=== PATIENT | male | born 1975 | race Hispanic/Latino ===

== ENCOUNTER 2018-03-20 14:45 | Emergency (ER) | payer OTHER, SELFPAY ==
[2018-03-20] MEDS ORDERED: FENTANYL CITR 100 MCG/2 ML ONE (14:59)
[2018-03-20] MEDS ORDERED: ONDANSETRON 4 MG/2 ML VIAL ONE (15:00)
--- NOTE | 2018-03-20 15:49 | RAD REPORT ---
EXAM DESCRIPTION: RAD - Elbow Left 3 View - 03/20/2018 3:41 pm CLINICAL HISTORY: Left elbow pain status post fall FINDINGS: The ulna and radius are dislocated posteriorly. A small avulsed bone fragment is suspected
[2018-03-20] MEDS ORDERED: ETOMIDATE 20 MG/10 ML VIAL IV ONE (16:04)
[2018-03-20] MEDS ORDERED: MIDAZOLAM HCL 2 MG/2 ML INJ ONE (16:04)
--- NOTE | 2018-03-20 16:57 | ER ---
Nurse's Notes [facility] Name: Alexy Fernandez Age: 42 yrs Sex: Male : 1975 Arrival Date: 03/20/2018 Time: 14:46 Bed 2 Private MD: Diagnosis: Dislocation and sprain of joints and ligaments of elbow Presentation: 03/20 14:46 Presenting complaint: EMS states: Patient fell from standing onto extended left arm. aj Reports pain in left elbow and inability to move left arm since fall. Transition of care: patient was not received from another setting of care. Onset of symptoms was March 20, 2018. Risk Assessment: Do you want to hurt yourself or someone else? Patient reports no desire to harm self or others. Initial Sepsis Screen: Does the patient meet any 2 criteria? No. Patient's initial sepsis screen is negative. Does the patient have a suspected source of infection? No. Patient's initial sepsis screen is negative. Care prior to arrival: None. 14:46 Method Of Arrival: EMS: [facility] 14:46 Acuity: CATIE 3 aj Triage Assessment: 14:48 General: Appears in no apparent distress. uncomfortable, Behavior is calm, cooperative, aj appropriate for age. Pain: Complains of pain in left elbow. Neuro: Level of Consciousness is awake, alert, obeys commands, Oriented to person, place, time, situation, Appropriate for age. Respiratory: Airway is patent Respiratory effort is even, unlabored, Respiratory pattern is regular, symmetrical. Derm: Skin is intact, is healthy with good turgor, Skin is pink, warm \T\ dry. normal. Musculoskeletal: Reports pain in left elbow. Historical: - Allergies: 14:48 No Known Allergies; aj - Home Meds: 14:48 None [Active]; aj - PMHx: 14:48 None; aj - PSHx: 14:48 Appendectomy; aj - Immunization history:: Last tetanus immunization: unknown. - Social history:: Smoking status: Patient/guardian denies using tobacco. - Ebola Screening: : Patient negative for fever greater than or equal to 101.5 degrees Fahrenheit, and additional compatible Ebola Virus Disease symptoms Patient denies exposure to infectious person Patient denies travel to an Ebola-affected area in the 21 days before illness onset No symptoms or risks identified at this time. Screenin:25 Abuse screen: Denies threats or abuse. Denies injuries from another. Nutritional aj screening: No deficits noted. Tuberculosis screening: No symptoms or risk factors identified. Fall Risk None identified. Assessment: 16:00 General: Appears in no apparent distress. comfortable, Behavior is calm, cooperative, aj appropriate for age. Pain: Complains of pain in left arm and left elbow. Neuro: Level of Consciousness is awake, alert, obeys commands, Oriented to person, place, time, situation, Appropriate for age. Respiratory: Airway is patent Respiratory effort is even, unlabored, Respiratory pattern is regular, symmetrical. Derm: Skin is intact, is healthy with good turgor, Skin is pink, warm \T\ dry. normal. Musculoskeletal: Circulation, motion, and sensation intact. Bony deformity noted of left elbow Reports pain in left arm and left elbow. 16:25 Reassessment: Patient appears in no apparent distress at this time. No changes from aj previously documented assessment. Patient and/or family updated on plan of care and expected duration. Pain level reassessed. Patient is alert, oriented x 3, equal unlabored respirations, skin warm/dry/pink. Patient denies pain at this time. Patient states feeling better. Patient states symptoms have improved. 17:10 Reassessment: Patient appears in no apparent distress at this time. No changes from aj previously documented assessment. Patient and/or family updated on plan of care and expected duration. Pain level reassessed. Patient is alert, oriented x 3, equal unlabored respirations, skin warm/dry/pink. Patient denies pain at this time. Patient states feeling better. Patient states symptoms have improved. Vital Signs: 14:48 BP 152 / 84; Pulse 86; Resp 20; Temp 97.6; Pulse Ox 98% on R/A; Weight 99.79 kg; Height aj 5 ft. 10 in. (177.80 cm); 16:02 BP 144 / 97; Pulse 97; Resp 18; Temp 98.1; Pulse Ox 100% on R/A; aj 16:25 BP 152 / 103; Pulse 85; Resp 18; Temp 98.1; Pulse Ox 99% on R/A; aj 17:10 BP 139 / 91; Pulse 100; Resp 20; Pulse Ox 100% on R/A; aj 14:48 Body Mass Index 31.57 (99.79 kg, 177.80 cm) ED Course: 14:46 Patient arrived in ED. aj 14:46 Omar Mancia PA is PHCP. jr8 14:46 Kunal Macario MD is Attending Physician. jr8 14:48 Triage completed. aj 14:51 Doreen Donaldson, RN is Primary Nurse. aj 14:51 Arm band placed on right wrist. Patient placed in an exam room, on a stretcher. aj 15:00 Inserted saline lock: 20 gauge in right hand, using aseptic technique. Blood collected. aj 15:41 X-ray completed. Portable x-ray completed in exam room. Patient tolerated procedure ka well. 15:42 XRAY Elbow LEFT 3 view In Process Unspecified. EDMS 15:42 XRAY Wrist LEFT 3 view In Process Unspecified. EDMS 15:55 monitoring specialist on. Pulse ox on. NIBP on. aj 15:55 Assist provider with reduction of left elbow using manipulation, Set up for procedure. aj Performed by Omar GLEZ Immobilized with shoulder immobilizer Patient tolerated well. 16:25 Patient has correct armband on for positive identification. Bed in low position. Call aj light in reach. Side rails up X2. Adult w/ patient. 16:41 X-ray completed. Portable x-ray completed in exam room. Patient tolerated procedure az well. 16:42 Elbow Left 3 View XRAY In Process Unspecified. EDMS 16:56 Valeriano Verduzco MD is Referral Physician. jr8 17:10 IV discontinued, intact, bleeding controlled, No redness/swelling at site. Pressure aj dressing applied. Administered Medications: 14:57 Drug: fentaNYL (PF) 100 mcg Route: IVP; Site: right hand; aj 16:31 Follow up: Response: Pain is decreased aj 14:57 Drug: Zofran 4 mg Route: IVP; Site: right hand; aj 16:33 Follow up: Response: Pain is decreased aj 16:09 Drug: Versed 2 mg Route: IVP; Site: right hand; aj 17:13 Follow up: Response: Pain is decreased aj 16:09 Drug: Etomidate 10 mg Route: IVP; Site: right hand; aj 17:13 Follow up: Response: No adverse reaction; Pain is decreased aj Outcome: 16:57 Discharge ordered by . jr8 17:10 Discharged to home ambulatory, with family. aj 17:10 Condition: good 17:10 Discharge instructions given to patient, family, Instructed on discharge instructions, follow up and referral plans. medication usage, Demonstrated understanding of instructions, follow-up care, medications, Prescriptions given X 2. 17:14 Patient left the ED. ángel Signatures: Dispatcher [employer] Doreen Alberts RN RN aj Roszak, Josh, PA PA jr8 Talia Noland Araceli az
--- NOTE | 2018-03-20 16:58 | EDPHYS ---
Physician Documentation [facility] Name: Alexy Fernandez Age: 42 yrs Sex: Male : 1975 Arrival Date: 03/20/2018 Time: 14:46 Bed 2 Private MD: ED Physician Kunal Macario HPI: 03/20 16:35 This 42 yrs old Male presents to ER via EMS with complaints of Elbow Injury. jr8 16:35 The patient or guardian complains of decreased range of motion, pain, tenderness. The jr8 complaints affect the left elbow. Onset: The symptoms/episode began/occurred acutely, today. Modifying factors: The symptoms are alleviated by nothing. the symptoms are aggravated by movement. Associated signs and symptoms: The patient has no apparent associated signs or symptoms. Severity of symptoms: At their worst the symptoms were moderate, in the emergency department the symptoms are unchanged. The patient has not experienced similar symptoms in the past. The patient has not recently seen a physician. Fell while at work landing on left side. Deformity to left elbow noted. [employer]UDIT[employer] by EMS . Historical: - Allergies: 14:48 No Known Allergies; aj - Home Meds: 14:48 None [Active]; aj - PMHx: 14:48 None; aj - PSHx: 14:48 Appendectomy; aj - Immunization history:: Last tetanus immunization: unknown. - Social history:: Smoking status: Patient/guardian denies using tobacco. - Ebola Screening: : Patient negative for fever greater than or equal to 101.5 degrees Fahrenheit, and additional compatible Ebola Virus Disease symptoms Patient denies exposure to infectious person Patient denies travel to an Ebola-affected area in the 21 days before illness onset No symptoms or risks identified at this time. ROS: 16:35 Eyes: Negative for injury, pain, redness, and discharge, ENT: Negative for injury, jr8 pain, and discharge, Neck: Negative for injury, pain, and swelling, Cardiovascular: Negative for chest pain, palpitations, and edema, Respiratory: Negative for shortness of breath, cough, wheezing, and pleuritic chest pain, Abdomen/GI: Negative for abdominal pain, nausea, vomiting, diarrhea, and constipation, Back: Negative for injury and pain, Skin: Negative for injury, rash, and discoloration, Neuro: Negative for headache, weakness, numbness, tingling, and seizure. 16:35 MS/extremity: Positive for decreased range of motion, ecchymosis, pain, tenderness, of the left elbow. Exam: 16:35 Eyes: Pupils equal round and reactive to light, extra-ocular motions intact. Lids and jr8 lashes normal. Conjunctiva and sclera are non-icteric and not injected. Cornea within normal limits. Periorbital areas with no swelling, redness, or edema. ENT: Nares patent. No nasal discharge, no septal abnormalities noted. Tympanic membranes are normal and external auditory canals are clear. Oropharynx with no redness, swelling, or masses, exudates, or evidence of obstruction, uvula midline. Mucous membranes moist. Neck: Trachea midline, no thyromegaly or masses palpated, and no cervical lymphadenopathy. Supple, full range of motion without nuchal rigidity, or vertebral point tenderness. No Meningismus. Cardiovascular: Regular rate and rhythm with a normal S1 and S2. No gallops, murmurs, or rubs. Normal PMI, no JVD. No pulse deficits. Respiratory: Lungs have equal breath sounds bilaterally, clear to auscultation and percussion. No rales, rhonchi or wheezes noted. No increased work of breathing, no retractions or nasal flaring. Abdomen/GI: Soft, non-tender, with normal bowel sounds. No distension or tympany. No guarding or rebound. No evidence of tenderness throughout. Back: No spinal tenderness. No costovertebral tenderness. Full range of motion. Skin: Warm, dry with normal turgor. Normal color with no rashes, no lesions, and no evidence of cellulitis. Neuro: Awake and alert, GCS 15, oriented to person, place, time, and situation. Cranial nerves II-XII grossly intact. Motor strength 5/5 in all extremities. Sensory grossly intact. Cerebellar exam normal. Normal gait. 16:35 Musculoskeletal/extremity: Extremities: grossly normal except: noted in the left elbow: decreased ROM, deformity, pain, swelling, tenderness, ROM: limited active range of motion, limited passive range of motion, limited active range of motion due to pain, limited passive range of motion due to pain, Circulation is intact in all extremities. Sensation intact. Vital Signs: 14:48 BP 152 / 84; Pulse 86; Resp 20; Temp 97.6; Pulse Ox 98% on R/A; Weight 99.79 kg; Height aj 5 ft. 10 in. (177.80 cm); 16:02 BP 144 / 97; Pulse 97; Resp 18; Temp 98.1; Pulse Ox 100% on R/A; aj 16:25 BP 152 / 103; Pulse 85; Resp 18; Temp 98.1; Pulse Ox 99% on R/A; aj 17:10 BP 139 / 91; Pulse 100; Resp 20; Pulse Ox 100% on R/A; aj 14:48 Body Mass Index 31.57 (99.79 kg, 177.80 cm) aj Procedures: 16:35 Reduction: of the left elbow, using traction, manipulation, Immobilized with sling, jr8 Patient tolerated well. Post reduction film - reveals normal alignment. Moderate sedation: Pre-procedure assessment: the patient has been NPO 4 hour(s) prior to arrival, ASA physical classification: I - healthy, no underlying organic disease, Airway assessment: able to hyperextend neck, able to maintain airway, can open mouth without difficulty, Mallampati classification of tongue size: IV - faucial pillars, soft palate, and uvula are not visualized, Monitoring during procedure: color television console monitor, continuous pulse oximetry, nurse at bedside at all times, Medications employed: Etomidate, 10 mg(s), Versed, 2 mg(s), Post-procedure assessment: the patient is moderately sedated, Brewer sedation score: 6 - no response, Respiratory status: even and unlabored, a reversal agent was not used. MDM: 14:46 Patient medically screened. rust 16:56 Data reviewed: vital signs, nurses notes, lab test result(s), radiologic studies, plain jr8 films. Data interpreted: Pulse oximetry: on room air is 99 %. Interpretation: normal. Counseling: I had a detailed discussion with the patient and/or guardian regarding: the historical points, exam findings, and any diagnostic results supporting the discharge/admit diagnosis, radiology results, the need for outpatient follow up, a orthopedic surgeon, to return to the emergency department if symptoms worsen or persist or if there are any questions or concerns that arise at home. 03/20 14:46 Order name: XRAY Elbow LEFT 3 view; Complete Time: 15:51 jr8 03/20 14:47 Order name: XRAY Wrist LEFT 3 view jr8 03/20 16:18 Order name: Elbow Left 3 View XRAY bd 03/20 14:47 Order name: IV; Complete Time: 14:57 jr8 03/20 15:52 Order name: Conscious Sedation; Complete Time: 16:43 jr8 Administered Medications: 14:57 Drug: fentaNYL (PF) 100 mcg Route: IVP; Site: right hand; aj 16:31 Follow up: Response: Pain is decreased aj 14:57 Drug: Zofran 4 mg Route: IVP; Site: right hand; aj 16:33 Follow up: Response: Pain is decreased aj 16:09 Drug: Versed 2 mg Route: IVP; Site: right hand; aj 17:13 Follow up: Response: Pain is decreased aj 16:09 Drug: Etomidate 10 mg Route: IVP; Site: right hand; aj 17:13 Follow up: Response: No adverse reaction; Pain is decreased aj Disposition: 03/21 07:04 Co-signature as Attending Physician, Kunal Macario MD I agree with the assessment and jens plan of care. Disposition: 03/20/18 16:57 Discharged to Home. Impression: Dislocation and sprain of joints and ligaments of elbow. - Condition is Stable. - Discharge Instructions: Elbow Dislocation. - Prescriptions for Ibuprofen 800 mg Oral Tablet - take 1 tablet by ORAL route every 12 hours As needed take with food; 20 tablet. Tylenol- Codeine #3 300-30 mg Oral Tablet - take 2 tablets by ORAL route every 6 hours As needed; 20 tablet. - Medication Reconciliation Form, Thank You Letter, Antibiotic Education, Prescription Opioid Use form. - Follow up: Valeriano Verduzco MD; When: 2 - 3 days; Reason: Recheck today's complaints, Continuance of care, Re-evaluation by your physician. - Problem is new. - Symptoms have improved. Signatures: Dispatcher [employer] Doreen Alberts RN RN aj Anderson, Corey, MD MD cha Roszak, Josh, PA PA jr8 Corrections: (The following items were deleted from the chart) 03/20 17:14 16:57 03/20/2018 16:57 Discharged to Home. Impression: Dislocation and sprain of joints aj and ligaments of elbow. Condition is Stable. Forms are Medication Reconciliation Form, Thank You Letter, Antibiotic Education, Prescription Opioid Use. Follow up: Dr. Valeriano Verduzco; When: 2 - 3 days; Reason: Recheck today's complaints, Continuance of care, Re-evaluation by your physician. Problem is new. Symptoms have improved. jr8
--- NOTE | 2018-03-20 17:11 | RAD REPORT ---
EXAM DESCRIPTION: RAD - Elbow Left 3 View - 03/20/2018 4:44 pm CLINICAL HISTORY: Elbow dislocation COMPARISON: March 20 FINDINGS: The radius and ulna have been reduced back to anatomic position. There are subtle cortical irregularities involving the radial head. Radial head fracture is suspected. There is a thin crescen t-shaped bony density along the lateral epicondyle concerning for small bone avulsion. No foreign bod y or other soft tissue abnormality. IMPRESSION: Radius and ulna have been reduced to anatomic position. Suspected radial head fracture and small bone avulsion from the lateral epicondyle.
--- NOTE | 2018-03-20 17:34 | RAD REPORT ---
EXAM DESCRIPTION: RAD - Wrist Left 3 View - 03/20/2018 3:41 pm CLINICAL HISTORY: Left wrist pain status post injury FINDINGS: No fracture or dislocation is seen. If the patient continues to have symptoms to suggest an occult fracture then a followup plain film se dc in 7 days would be recommended
== END 2018-03-20 17:14 | disposition home or self-care (01) ==
LOC: ER 14:45
PROC: 0RSMXZZ Reposition Left Elbow Joint, External Approach (ICD-10-PCS; principal; 2018-03-20)
DX: S53.105A Unspecified dislocation of left ulnohumeral joint, initial encounter (principal); S53.402A Unspecified sprain of left elbow, initial encounter; W19.XXXA Unspecified fall, initial encounter; Y93.9 Activity, unspecified; Y92.89 Other specified places as the place of occurrence of the external cause; Y99.8 Other external cause status
CPT/HCPCS: 96374; 96375; 99285; J2250; J2405; J3010